=== PATIENT | female | born 1995 | race Caucasian/White ===

== ENCOUNTER 2017-02-09 16:15 | Outpatient (RCR) | payer BC ==
[~2017-02-09 16:15] MED LIST: BIRTH CONTROL
== END 2017-02-13 | disposition still patient (30) ==
LOC: WSST
DX: R68.89 Other general symptoms and signs (principal); R49.0 Dysphonia; J38.3 Other diseases of vocal cords

== ENCOUNTER 2017-03-15 16:15 | Outpatient (RCR) | payer BC | END 2017-03-17 09:40 | LOC: WSST 16:15 | DX: R68.89 Other general symptoms and signs (principal) ==

== ENCOUNTER → 2019-12-13 | Outpatient (CLI) | payer BC | LOC: ZCOL.LAB 14:30 | DX: Z20.828 Contact with and (suspected) exposure to other viral communicable diseases (principal) ==

== ENCOUNTER 2021-09-18 11:27 | Outpatient (CLI) | payer BC ==
[~2021-09-18] VITALS: Ht 162.6 cm; Wt 84.1 kg
--- NOTE | 2021-09-18 11:35 | NUR ---
PT ARRIVES AMBULATORY TO UNIT, SENT OVER FROM CLINIC FOR ELEVATED BP'S. PT DENIES LEAKING OF FLUID AND REPORTS POSITIVE MOVEMENT. PT STATES SHE HAS BEEN HAVING "GUY QUIÑONES" FOR WEEKS, SOME HAVE PAIN ASSOCIATED WITH THEM BUT SHE IS ABLE TO BREATHE THROUGH THEM. BP UPON ARRIVAL 149/90, HR100. CATEGORY 1 STRIP NOTED UPON ARRIVAL. NO CONTRACTIONS AT THIS TIME.
[2021-09-18] MEDS ORDERED: PRENATAL (11:46)
[2021-09-18] MEDS ORDERED: ZOLOFT 25MG25 MG PO (11:46)
[2021-09-18] MEDS ORDERED: ZYRTEC ALLERGY10 MG PO (11:47)
[2021-09-18 12:00] VITALS: BP 149/90; PULSE 100; TEMP 97.9
[2021-09-18 12:02] LABS: COLLECTION METHOD CLEAN CATCH
[2021-09-18 12:04] LABS: BASO # 0.1 K/mm3 (0.0-0.2); BASO % 0.6 % (0.0-2.0); EOS # 0.1 K/mm3 (0.0-0.7); EOS % 0.6 % (0.0-4.0); GRAN # 7.2 K/mm3 (1.4-6.5); GRAN % 68.2 % (42.2-75.2); HEMATOCRIT 35.8 % (37.0-47.0); HEMOGLOBIN 12.1 g/dl (12.5-16.0); LYMPH # 2.5 K/mm3 (1.2-3.4); LYMPH % 23.3 % (20.0-51.0); MEAN CELL VOLUME 85 fl (80.0-100.0); MEAN CORPUSCULAR HEMOGLOBIN 29 pg (27-31); MEAN CORPUSCULAR HGB CONC 34 g/dl (33.0-37.0); MEAN PLATELET VOLUME 11.9 fl (7.4-10.4); MONO # 0.7 K/mm3 (0.1-0.6); MONO % 6.8 % (1.7-9.3); PLATELET COUNT 223 K/mm3 (130-400); RED BLOOD COUNT 4.21 M/mm3 (4.10-5.30); REDCELL DISTRIBUTION WIDTH-CV 12.3 % (11.5-14.5)
[2021-09-18 12:08] LABS: PH 7 (5-8); SQUAMOUS EPITHELIAL None Seen /hpf (0-10); URINE APPEARANCE Clear (CLEAR/HAZY); URINE BACTERIA Rare /hpf (NONE SEEN); URINE BILIRUBIN Negative (NEGATIVE); URINE BLOOD Negative (NEGATIVE); URINE COLOR Straw (YELLOW); URINE GLUCOSE Negative (NEGATIVE); URINE KETONE Negative (NEGATIVE); URINE LEUKOCYTE ESTERASE Negative (NEGATIVE); URINE NITRATE Negative (NEGATIVE); URINE PROTEIN(semi-quant) Negative (NEGATIVE); URINE RBC 0-2 /hpf (0-2); URINE UROBILINOGEN Negative (NEGATIVE); URINE WBC 0-2 /hpf (0-2)
[2021-09-18 12:24] LABS: ALBUMIN 2.8 gm/dL (3.5-5.0); BILIRUBIN,TOTAL 0.2 mg/dL (0.2-1.2); CALCIUM 8.6 mg/dL (8.4-10.2); CREATININE, serum 0.66 mg/dL (0.57-1.11); POTASSIUM 3.9 mmol/L (3.5-4.5); TOTAL PROTEIN 6.3 gm/dL (6.2-8.1)
[2021-09-18 12:30] VITALS: BP 130/81; PULSE 81
[2021-09-18 13:00] VITALS: BP 138/85; PULSE 88
[2021-09-18 13:30] VITALS: BP 130/79; PULSE 70
[2021-09-18 13:40] VITALS: BP 131/83; PULSE 77
--- NOTE | 2021-09-18 13:40 | NUR ---
ALL DC PAPERWORK REVIEWED AND UNDERSTOOD BY PT. PT TO BEGIN 24 HOUR URINE COLLECTION ON TUESDAY AM. WILL RETURN JUG TO [facility] ON TUESDAY MORNING. PT TO BE ON BEDREST THROUGHOUT WEEKEND, AND NOT WORK NEXT WEEK PER . EDUCATED THOROUGHLY ON WHEN TO RETURN FOR FURTHER EVALUATION THROUGHOUT WEEKEND. PT STATES HER UNDERSTANDING. AMBULATORY FROM UNIT AT THIS TIME IN STABLE CONDITION.
== END 2021-09-18 13:50 | disposition home or self-care (01) ==
LOC: LDRO 11:27
PROVIDERS: Student in an Organized Health Care Education/Training Program
DX: Z34.90 Encounter for supervision of normal pregnancy, unspecified, unspecified trimester (principal); Z3A.00 Weeks of gestation of pregnancy not specified

== ENCOUNTER 2021-09-21 09:52 | Outpatient (CLI) | payer BC ==
[~2021-09-21] VITALS: Ht 162.6 cm; Wt 83.2 kg
[~2021-09-21 09:52] MED LIST changes: +PRENATAL; +ZOLOFT 25MG25 MG PO; +ZYRTEC ALLERGY10 MG PO
[2021-09-21 10:03] VITALS: BP 132/83; PULSE 94; TEMP 98.4
[2021-09-21 10:19] LABS: COLLECTION METHOD CLEAN CATCH
[2021-09-21 10:27] LABS: PH 7 (5-8); SQUAMOUS EPITHELIAL 0-2 /hpf (0-10); URINE APPEARANCE Clear (CLEAR/HAZY); URINE BACTERIA Occasional /hpf (NONE SEEN); URINE BILIRUBIN Negative (NEGATIVE); URINE BLOOD Negative (NEGATIVE); URINE COLOR Straw (YELLOW); URINE GLUCOSE Negative (NEGATIVE); URINE KETONE Negative (NEGATIVE); URINE LEUKOCYTE ESTERASE Negative (NEGATIVE); URINE NITRATE Negative (NEGATIVE); URINE PROTEIN(semi-quant) Negative (NEGATIVE); URINE RBC 0-2 /hpf (0-2); URINE UROBILINOGEN Negative (NEGATIVE); URINE WBC 0-2 /hpf (0-2)
--- NOTE | 2021-09-21 10:46 | NUR ---
1003 PATIENT HERE FOR COMPLAINTS OF HEADACHE YESTERDAY AND HIGH BP THIS AM IN OFFICE. SENT OVER FOR BP AND UA. EFM ON FHT 150 BABY VERY ACTIVE. BP 132/84 DENIES CONTRACTIONS TODAY. SVE 0/30/HIGH. ASSESSMENT COMPLETE. UA SENT TO LAB AT THIS TIME
[2021-09-21 11:00] VITALS: BP 138/94; PULSE 75
--- NOTE | 2021-09-21 11:09 | NUR ---
1053 FHT DECREASED TO 100-105 FIR 2MIN AND INCREASED TO 145 WITH ACCELERATIONS AT THIS TIME
[2021-09-21 12:25] VITALS: BP 135/88; PULSE 71
--- NOTE | 2021-09-21 12:29 | NUR ---
12[address] DR [address]MAG[address]ER AND DR RANKIN AT BEDSIDE TO EVALUATE STRIP. ORDERS TO DISMISS TO HOME TO RETURN Tuesday FOR INDUCTION. ALL DISCHARGE INSTRUCTIONS GIVEN TO PATIENT WITH VERNAL UNDERSTANDING, DISMISS TO HOME
== END 2021-09-21 12:20 | disposition home or self-care (01) ==
LOC: LDRO 09:52
PROVIDERS: Obstetrics & Gynecology
DX: O16.9 Unspecified maternal hypertension, unspecified trimester (principal); Z3A.00 Weeks of gestation of pregnancy not specified

== ENCOUNTER 2021-09-22 17:20 | Inpatient (IN) | payer BC ==
[2021-09-22] VITALS (15 sets, daily range): BP systolic 114–147; BP diastolic 52–95; PULSE 78–103; TEMP 98.2–98.4
[~2021-09-22] VITALS: Ht 162.6 cm; Wt 83.6 kg
--- NOTE | 2021-09-22 19:15 | NUR ---
Off monitor, up to bathroom. 2033 Ambulates to C/S room. lovinf and supportive @ bedside.
[2021-09-22 20:23] LABS: BASO % 0.3 % (0.0-2.0); EOS # 0.1 K/mm3 (0.0-0.7); EOS % 0.6 % (0.0-4.0); GRAN # 7.1 K/mm3 (1.4-6.5); GRAN % 69.5 % (42.2-75.2); HEMOGLOBIN 12.4 g/dl (12.5-16.0); LYMPH # 2.2 K/mm3 (1.2-3.4); LYMPH % 21.8 % (20.0-51.0); MEAN CELL VOLUME 82 fl (80.0-100.0); MEAN CORPUSCULAR HEMOGLOBIN 29 pg (27-31); MEAN CORPUSCULAR HGB CONC 35 g/dl (33.0-37.0); MEAN PLATELET VOLUME 12.8 fl (7.4-10.4); MONO # 0.8 K/mm3 (0.1-0.6); MONO % 7.4 % (1.7-9.3); PLATELET COUNT 227 K/mm3 (130-400); RED BLOOD COUNT 4.35 M/mm3 (4.10-5.30); REDCELL DISTRIBUTION WIDTH-CV 12.3 % (11.5-14.5)
[2021-09-22 20:24] LABS: HEMATOCRIT 35.7 % (37.0-47.0)
[2021-09-23] VITALS (8 sets, daily range): BP systolic 124–148; BP diastolic 73–100; PULSE 76–96; TEMP 97.7–98
--- NOTE | 2021-09-23 | NUR ---
Able to move feet and bend knees slightly
--- NOTE | 2021-09-23 01:00 | NUR ---
Pt able to bend knees and lift hips briefly. Turns side to side easily for pericare. Denies needs.
--- NOTE | 2021-09-23 09:30 | NUR ---
Rests in bed, alert. States having gone to the bathroom. Visits with family,
[2021-09-23] MEDS ORDERED: PERCOCET 325 MG1 TA2 PO (09:37)
[2021-09-23] MEDS ORDERED: IBU800 M1 PO (09:37)
--- NOTE | 2021-09-23 12:45 | NUR ---
Visits with family. Percocet 5/325 mg one, ibuprofen 800 mg given as ordered.
[2021-09-24] VITALS: BP 138/90; PULSE 93
[2021-09-24 07:51] VITALS: BP 136/84; PULSE 76; TEMP 97.8
--- NOTE | 2021-09-24 08:27 | NUR ---
0830 REPORT GIVEN TO CHRISTINA RAMIREZ RN TO ASSUME CARE AT THIS TIME
[2021-09-24 16:30] VITALS: BP 128/94; PULSE 82; TEMP 98.4
--- NOTE | 2021-09-24 18:35 | NUR ---
Report received. Plan of care reviewed.
[2021-09-24 18:45] VITALS: BP 139/95; PULSE 82; TEMP 98.1
[2021-09-25 08:00] VITALS: BP 137/87; PULSE 83; TEMP 98.1
== END 2021-09-25 11:58 | disposition home or self-care (01) | DRG 788 ==
LOC: LDR 17:20 → OB 18:56
PROVIDERS: ADMIT Student in an Organized Health Care Education/Training Program
PROC: 10D00Z1 Extraction of Products of Conception, Low, Open Approach (ICD-10-PCS; principal; 2021-09-22)
DX: O13.4 Gestational [pregnancy-induced] hypertension without significant proteinuria, complicating childbirth (principal); O99.344 Other mental disorders complicating childbirth; F41.9 Anxiety disorder, unspecified; O99.52 Diseases of the respiratory system complicating childbirth; J45.909 Unspecified asthma, uncomplicated; O69.81X0 Labor and delivery complicated by cord around neck, without compression, not applicable or unspecified; Z3A.38 38 weeks gestation of pregnancy; Z37.0 Single live birth; Z23 Encounter for immunization
CPT/HCPCS: J0690; J1885; J2370; J2405; J2590; J7120